=== PATIENT | male | born 1985 | race Two or more races ===

== ENCOUNTER 2023-07-05 02:46 | Emergency (ER) | payer MEDICAID ==
[~2023-07-05] VITALS: Ht 157.5 cm; Wt 50.0 kg
[2023-07-05 03:59] LABS: BILIRUBIN,URINE NEGATIVE (Neg); CLARITY,URINE CLEAR (Clear); COLOR,URINE YELLOW (Yellow); GLUCOSE, URINE NEGATIVE (Neg); KETONES,URINE NEGATIVE (Neg); LEUKOCYTE ESTERASE ,URINE NEGATIVE (Neg); NITRITES, URINE NEGATIVE (Neg); OCCULT BLOOD,URINE NEGATIVE (Neg); PROTEIN,URINE NEGATIVE (Neg); UROBILINOGEN,URINE 0.2 E.U/dL (0.2-1.0)
[2023-07-05 04:04] LABS: UA COLLECTION TYPE CLN CATCH MIDSTREAM
[2023-07-05] MEDS ORDERED: oxybutynin 5mg tablet PO ONE (04:15)
[2023-07-05] MEDS ORDERED: tamsulosin 0.4mg capsule PO ONE (04:15)
[2023-07-05] MEDS ORDERED: FLO0.4C PO (04:21)
[2023-07-05] MEDS ORDERED: OXYB10TA30 PO (04:21)
[2023-07-05 04:28] VITALS: BP 132/68; PULSE 76; RESP 16; O2SAT 99
[2023-07-05 04:29] VITALS: TEMP 98
== END 2023-07-05 04:32 | disposition home or self-care (01) ==
LOC: ER 02:47
DX: R35.0 Frequency of micturition (principal); R30.0 Dysuria
CPT/HCPCS: 81003; 99283; 99284